=== PATIENT | female | born 1975 | race Caucasian/White ===

== ENCOUNTER 2017-02-02 13:11 | Emergency (ER) | payer SELFPAY ==
[~2017-02-02] VITALS: Ht 157.5 cm; Wt 87.3 kg
[2017-02-02] MEDS ORDERED: BACITRACIN 0.9 GM PACKET OINTMENT TP ONE (15:00)
[2017-02-02] MEDS ORDERED: HYDROCODONE/ACETAMINOPHEN 5-325 MG TABLET PO ONE (15:00)
[2017-02-02 17:00] VITALS: BP 131/78
== END 2017-02-02 17:28 | disposition home or self-care (01) ==
LOC: EDUNIT# 13:11 → EMS 13:15
DX: S33.5XXA Sprain of ligaments of lumbar spine, initial encounter (principal); S93.601A Unspecified sprain of right foot, initial encounter; S83.91XA Sprain of unspecified site of right knee, initial encounter; Z88.0 Allergy status to penicillin; W22.8XXA Striking against or struck by other objects, initial encounter; Y93.89 Activity, other specified; Y92.89 Other specified places as the place of occurrence of the external cause; Y99.8 Other external cause status
CPT/HCPCS: 72131; 81025; 99284